=== PATIENT | male | born 1980 | race Caucasian/White ===

== ENCOUNTER 2018-09-18 08:54 | Day surgery (SDC) | payer OTHER, SELFPAY ==
--- NOTE | 2018-09-18 13:20 | CASEMGMT ---
According to [employer] website, the following are in-network tertiary facilities: [facility], [facility], [facility], [facility], [facility], [facility], [facility], [facility], and . [facility] [place] [facility]
--- NOTE | 2018-09-18 13:30 | CL.D_ITS ---
Patient Name: LEO GRAFF Study Date: 09/18/2018 Performing: Artie Huff MD Ht: 68.11 inches 173 cm : 1980 Wt: 194.01 lbs 88 kg Age: 37 Gender: male BSA: 2.02 PROCEDURE(S) PERFORMED OU23-VGM/COR/LV CLINICAL PROFILE AND INDICATIONS Indications: Worsening Angina Heart Failure: None Stress/Imaging Standard Exercise Stress Test: Yes Result: Positive Angina Classification Anginal Classification w/in 2 Weeks: CCS III CAD Presentations: Unstable angina. CONCLUSIONS Elevated Left Ventricular End Diastolic Pressure (mild) Normal LV size, wall motion,and systolic function LVEF: by LV gram 55 % [place] Multivessel CAD RECOMMENDATIONS Risk factor modification Medical therapy [facility] evaluation for high risk / GUIDE DELEGATE intervention vs. surgery consult for coronary rev ascularization DESCRIPTION OF PROCEDURE The patient arrived to the procedure lab. The risks and benefits of the procedure as well as a full d escription of our services here and current unavailability of surgical backup were fully explained to the patient and/or their significant other prior to the catheterization. The Timeout was completed, verifying the correct patient and procedure. The patient's procedural site was prepped and draped in the usual fashion. Local anesthetic was given subcutaneously to right radial region with Lidocaine 2% . Using a modified Seldinger technique, arterial access was obtained via the right radial artery, a 6 Fr sheath was inserted. Right Coronary Artery selective angiography was performed in multiple views using a 5 Fr. 4.0 Barre catheter. Left Coronary Artery selective angiography was performed in multipl e views using a 5 Fr. 4.0 Barre catheter. Left Ventriculography was performed in GUERRERO projection using a 5 Fr. Pigtail catheter. LV to AO pullback pressures were then recorded.The arterial sheath was pulled and a TR Band was applied for hemostasis CORONARY ANGIOGRAPHY DOMINANCE: Co- Dominant LEFT HEART ASSESSMENT Left Ventricular Ejection Fraction: by LV Gram 55 % Normal LV wall motion Elevated Left Ventricular End Diastolic Pressure LVEDP: 14 mmHg LEFT MAIN: Angiographically normal LEFT ANTERIOR DECENDING ARTERY: PROX LAD: Mild luminal irregularities MID LAD: is occluded with the mid to distal vessel filling late and paritally from left to left colla teral flow SEPTAL: Ostial: 50 % Stenosis CIRCUMFLEX ARTERY: Mild luminal irregularities OM 1: Proximal - Mild luminal irregularities and 25% stenosis (pre bifurcation), Mid - Mild luminal i rregularities RIGHT CORONARY ARTERY: MID RCA: is occluded DISTAL RCA: filling late and faintly from right to right and left to right collateral flow COLLATERAL FLOW: Collateral flow from Left to Left Collateral flow from Left to Right Collateral flow from Right to Right VALVE FINDINGS: Normal Aortic Valve function Normal Mitral Valve function AORTIC ROOT: Angiographically normal COMPLICATIONS No Complications PROCEDURE MEDICATIONS Versed 1 mg IV Fentanyl 50 mcg IV Fentanyl 50 mcg IV Versed 1 mg IV Oxygen: 2 L/min via nasal cannula Heparin diluted in 23cc Heparinized saline. Patient given 10cc IA of this solution. 09/18/2018 11:21: 33 Verapamil 2.5mg, Ntg 100mcgs, 2000 units of Heparin diluted in 23cc Heparinized saline. Patient give n 10cc IA of this solution. 09/18/2018 11:21:33 SUMMARY OF HEMODYNAMIC DATA Time AIR REST ECG 09:18:26 AO 115/72 (90) SA 11:24:54 LV 122/0, 12 11:34:09 LV 125/3, 14 11:34:15 LV 133/3, 16 11:35:30 LV 135/2, 19 11:35:37 LVp 138/-1, 15 11:35:42 AOp 130/75 (99) 11:35:47 Signed By Artie Huff MD On 09/18/2018 13:29:44 Artie Huff MD
--- NOTE | 2018-09-18 14:32 | HP.PCM_ITS ---
Problem List (1) Angina pectoris Status: Acute (2) Abnormal stress test Status: Acute (3) CAD (coronary artery disease) Status: Acute (4) HLD (hyperlipidemia) Status: Chronic (5) HTN (hypertension) Status: Chronic (6) Diabetes mellitus Status: Chronic (7) Tobacco use Status: Chronic History of Present Illness Date of Admission: 09/18/18 The patient is a 37 year old white male with a past medical history of hyperlipidemia, hypertension, diabetes mellitus, tobacco use, who has been following with Dr. Irving Machado of cardiology for concerns of chest discomfort and he has subsequently undergone further evaluation with a treadmill stress test and a stress echocardiogram who has subsequently been referred for further evaluation with diagnostic cardiac catheterization which demonstrated angiographically significant appearing coronary artery disease.The patient has described symptoms of chest discomfort with exertional activity with respect to chest tightness with radiation to the upper extremities with paresthesias as well as concerns of an element of dyspnea, nausea, and diaphoresis. The symptoms have occurred when he has been performing physical activity including sexual intercourse.They appear to improve with rest. He has denied orthopnea, PND, peripheral pitting edema. There have been no report of near syncope or syncope. He has undergone evaluation in the past with an exercise tolerance test. According to the report from 08/25/2018 the conclusion was he had an abnormal submaximal treadmill stress ECG with up to 2.8 mm of additional downsloping ST depression in the inferolateral leads with exercise stress. ST changes were associated with midsternal chest discomfort that radiated to the left arm and hand. ST changes in symptoms occurred at low exercise workload/heart rate and increased and magnitude/severity with increasing workload. ST changes were slow to resolve in recovery. Oxygen saturation was reported at 99% during exercise. The test was considered clinically positive for ischemia. He has subsequently undergone evaluation on 09/11/2018 with a stress echocardiogram. According to the report the patient at that time experienced no symptoms during stress, the exercise stress echo was considered positive for ischemia at 94% predicted maximum heart rate with concerns of mid and distal anterior septum and apical inferior segment an [place] being hypokinetic with report of an LV EF of 51% and no significant valvular abnormalities reported. The patient does states he has a previous history of mitral valve prolapse. He was referred for further evaluation with diagnostic cardiac catheterization. The cardiac catheterization was performed. He was found to have angiographically significant appearing coronary artery disease involving the LAD system and the RCA system. The left ventricle appeared to be overall preserved with respect of left ventricular wall motion and systolic function with an estimated LVEF of 55%. Past Medical History Allergies/Adverse Reactions: Allergies cephalexin [From Keflex] Allergy (Verified 09/17/18 07:41) Shortness of breath Home Medications: Ambulatory Orders Medication Instructions Recorded Aspirin [Aspirin, Baby] 81 mg PO DAILY@0800 09/17/18 Atorvastatin Calcium [Lipitor] 80 mg PO QHS 09/17/18 Clonazepam 0.5 mg PO BID 09/17/18 Desvenlafaxine Succinate [Pristiq] 50 mg PO DAILY 09/17/18 Flaxseed Oil [[place]-3 Flaxseed Oil] 520 mg PO DAILY 09/17/18 Metformin HCl 500 mg PO BID 09/17/18 Nicotine [Nicoderm Cq ([facility])] 7 mg TRANSDERM. DAILY 09/17/18 Nicotine [Nicoderm Cq ([facility]KC)] 14 mg TRANSDERM. DAILY 09/17/18 Nitroglycerin 0.4 mg SL PRN PRN 09/17/18 Omeprazole 20 mg PO DAILY 09/17/18 Past Medical History (Chronic Problems): Chronic Problems (Last Updated 09/17/18 @ 07:44 by Edward Junior) HLD (hyperlipidemia) (Chronic) Diabetes mellitus (Chronic) HTN (hypertension) (Chronic) Tobacco use (Chronic) Lives: Spouse/ Significant Other Smoking Status: Current every day smoker Alcohol: None Drugs: None Review of Systems - Review of Systems General: Denies: Fever, Night Sweats, Fatigue Cardiovascular: Reports: Chest Discomfort with Exertion, Shortness of Breath at Rest. Denies: Chest Discomfort, Shortness of Breath, Orthopnea, PND, Peripheral Edema, Palpitations, Lightheadedness, Dizziness, Near Syncope, Syncope Respiratory: Reports: Shortness of Breath. Denies: Cough, Sputum Production, Hemoptysis Gastrointestinal: Denies: Hematemesis, Hematochezia, Melena Genitourinary: Denies: Dysuria, Hematuria Skin: Denies: Rash Subjectve: This is a pleasant 37-year-old white male who appears to be resting comfortably in no acute distress. Objective: Weight: 194 lb General: Awake, Alert, Oriented x 3, Cooperative, No Acute Distress HEENT: Atraumatic, Normocephalic, PERRL, EOMI, Sclera Non Icteric Oral: Moist Mucosa Neck: Supple, Good ROM, No JVD Lungs: Clear to auscultation Cardiovascular: Regular Rhythm, Normal S1, Normal S2 Vascular: No Carotid Bruits, Normal Radial Pulses Abdomen: Bowel Sounds Present, Soft, Non Tender Extremities: No Cyanosis, No Clubbing, No edema Neurological: No Focal Motor or Sensory Deficit Psych/Mental Status: Appropriate VTE Information - Inpt Only VTE Present on Admission: No VTE Mechan Device Prophylaxis: None VTE Pharm Prophylaxis ordered?: Yes Labs: 08/05/2018: Total cholesterol 367; LDL cholesterol to 68; HDL cholesterol 33; triglycerides 329 Rhythm:Sinus rhythm ECG: Sinus rhythm; minimal voltage criteria for LVH Stress Test: As noted above Cardiac Cath: Please see official report Chest x-ray: 07/28/2018: Per the report: No acute radiographic abnormality Assessment/Plan 1. Angina pectoris The patient presents with symptoms concerning for angina pectoris. He has undergone evaluation with noninvasive studies including a treadmill stress test and a stress echocardiogram. Both were considered abnormal. He was placed on medical management. He was subsequently referred for further evaluation with diagnostic cardiac catheterization. The cardiac catheterization findings are as noted above. He will continue medical management. He is pending transferred to the [facility] [place] for further evaluation for possible high risk PTCA/stent versus CT surgery for CABG. 2. Abnormal stress tests He does have both and abnormal treadmill stress test and an abnormal stress echocardiogram. He has been evaluated as noted above. He will continue medical management and further evaluation at the tertiary care center. 3. CAD He has been found to have premature CAD. He has angiographically significant appearing CAD of the LAD and RCA systems. At the present time he will continue to be monitored. He will continue medical management which include agents such as aspirin, nitrates is needed, beta blockers, lipid lowering agents, anti platelets/anticoagulant agents is deemed appropriate, etc. He is pending transfer to [facility] for further evaluation and care. 4. Hyperlipidemia He will continue lipid lowering therapy. 5. Hypertension His blood pressure will be followed. He will continue medical management. 6. Diabetes mellitus He will continue evaluation care is deemed appropriate. 7. Tobacco use He has been counseled on the need to discontinue any tobacco use. Comment: The patient's case has been discussed and reviewed with the patient, his spouse, his mother, as well as with his primary interventional radiology tech Dr. Ribeiro. This note was generated using a voice recognition system and there may be incorrect words, spelling or punctuation that were not noted when reviewing the office note prior to saving.
[2018-09-18 16:00] VITALS: BP 115/65; PULSE 50; RESP 16; TEMP 36.4; O2SAT 95
[2018-09-18 16:15] VITALS: PULSE 46
[2018-09-18] MEDS: 0.9% Normal Saline 1,000 ML 75 ML IV (16:37)
[2018-09-18 16:51] LABS: Bedside Glucose 107 mg/dL (70-110)
[2018-09-18 19:07] VITALS: PULSE 57
[2018-09-18 21:53] VITALS: BP 150/79; PULSE 44; RESP 18; TEMP 36.8; O2SAT 96
[2018-09-18] MEDS: Atorvastatin Calcium 80 MG Tablet PO (22:19)
[2018-09-18] MEDS: Heparin Injection (Vial) 5,000 UNIT/ML VIAL 5000 UNIT SC (22:19)
[2018-09-18] MEDS: clonazePAM 0.5 MG Tablet PO (22:19)
[2018-09-18 22:21] VITALS: PULSE 44
[2018-09-18 22:31] LABS: Bedside Glucose 119 mg/dL (70-110)
[2018-09-18 23:01] VITALS: PULSE 45
[2018-09-19] VITALS (9 sets, daily range): BP systolic 106–126; BP diastolic 54–70; PULSE 45–60; RESP 16–18; TEMP 36.3–36.9; O2SAT 95–100
--- NOTE | 2018-09-19 05:55 | EKG12_ITS ---
Test Reason : AM EKG Blood Pressure : / mmHG Vent. Rate : 045 BPM Atrial Rate : 045 BPM P-R Int : 152 ms QRS Dur : 086 ms QT Int : 440 ms P-R-T Axes : 003 009 011 degrees QTc Int : 380 ms Sinus bradycardia with Fusion complexes Otherwise normal ECG When compared with ECG of 13-MAY-2012 02:35, Fusion complexes are now Present Vent. rate has decreased BY 25 BPM Confirmed by RENA CLEMONS, MENG ([id number]), editor magazine SÁNCHEZ MEEK ([id number]) on 09/22/2018 5:34:55 PM Referred By: Artie Huff Confirmed By:MENG CHASE MD
[2018-09-19 06:46] LABS: Absolute Lymphocyte Count 3.54 X10^3/ul (0.83-4.51); Absolute Neutrophil Count 6.6 X10^3/uL (2.0-7.7); Basophil# 0.04 X10^3/uL; Basophil% 0.3 % (0-1); Eosinophils% 2.6 % (0-5); Hematocrit 42.9 % (40-54); Hemoglobin 13.9 g/dl (13.0-16.5); Lymphocyte # 3.54 X10^3/ul (4.0); Lymphocyte % 30.9 % (19-41); Mean Corp Hgb Conc 32.4 g/gl (32-36); Mean Corpuscular Hgb 29.8 pg (27.0-32.0); Mean Corpuscular Volume 92.1 fL (80-94); Mean Platelet Vol. 10.8 fl (6.2-12.0); Monocyte# 0.95 X10^3/uL; Monocyte% 8.3 % (0-10); Neutrophil # 6.59 X10^3/uL (2.7-7.7); Neutrophil % 57.7 % (47-70); Platelet Count 263 K/mm3 (150-450); RBC Distribution Width CV 13.9 % (11.6-14.6); RBC Distribution Width SD 46.7 fl (35.1-43.9); Red Blood Count 4.66 M/mm3 (4.6-6.2); White Blood Count 11.4 K/mm3 (4.4-11.0)
[2018-09-19] MEDS: Heparin Injection (Vial) 5,000 UNIT/ML VIAL 5000 UNIT SC ×2 (06:46→14:26)
[2018-09-19 06:49] LABS: POSITIVE COUNT NO; POSITIVE DIFFERENTIAL NO; POSITIVE MORPHOLOGY NO
[2018-09-19 06:56] LABS: Bedside Glucose 114 mg/dL (70-110)
[2018-09-19 07:01] LABS: Anion Gap 8 (5-15); BUN 13 mg/dL (7-18); BUN/Creat Ratio 19.2 RATIO (10-20); Calcium,Total 8.5 mg/dL (8.5-10.1); Chloride 109 mmol/L (98-107); Creatinine, Serum 0.68 mg/dL (0.70-1.30); EST Glomerular Filtration Rate 141 mL/min (>60); Est Glom Filt Rate - Afr Amer 170 mL/min (>60); Estimated Creatinine Clearance 146.69 ml/min; Glucose 106 mg/dL (74-106); Potassium 3.9 mmol/L (3.5-5.1); Sodium Level 142 mmol/L (136-145)
[2018-09-19] MEDS: clonazePAM 0.5 MG Tablet PO (09:39)
[2018-09-19] MEDS: Pantoprazole Sodium 20 MG Tablet PO (09:39)
[2018-09-19] MEDS: Aspirin E.C. 81 MG Tablet PO (09:39)
[2018-09-19 11:40] LABS: Bedside Glucose 129 mg/dL (70-110)
[2018-09-19] MEDS: Venlafaxine XR 37.5 MG Capsule PO (12:51)
--- NOTE | 2018-09-19 13:28 | NURSING ---
Called and spoke with [facility] torie Mclean - Census is still very high and no available bed at this time. Will contact with any changes.
--- NOTE | 2018-09-19 13:52 | PN.CARD_ITS ---
Subjectve: The patient is awake and alert. He denies any acute chest discomfort or difficulty breathing. He has had no obvious post cardiac catheterization adverse events. Objective: Vital Signs Temp Pulse Resp BP Pulse Ox 98.5 F 52 L 18 122/54 H 96 09/19/18 09:20 09/19/18 10:59 09/19/18 09:20 09/19/18 09:39 09/19/18 09:20 Oxygen Delivery Method Room Air Weight: 194 lb Intake and Output for Last 24 Hours 09/17/18 09/18/18 09/19/18 23:59 23:59 23:59 Intake Total 147 / 147 1355 / 1355 Balance 147 / 147 1355 / 1355 General: Awake, Alert, Oriented x 3, Cooperative, No Acute Distress HEENT: Atraumatic, Normocephalic, PERRL, EOMI, Sclera Non Icteric Neck: Supple, Good ROM, No JVD Lungs: Clear to auscultation Cardiovascular: Regular Rhythm, Normal S1, Normal S2 Vascular: Normal Radial Pulses Abdomen: Bowel Sounds Present, Soft, Non Tender Extremities: No Cyanosis, No Clubbing, No edema Psych/Mental Status: Appropriate 09/19/18 05:17: WBC 11.4 H, RBC 4.66, Hgb 13.9, Hct 42.9, MCV 92.1, MCH 29.8, MCHC 32.4, RDW 13.9, RDW Differential 46.7 H, Plt Count 263, MPV 10.8, Immature Gran % (Auto) 0.200, Neut % (Auto) 57.7, Lymph % (Auto) 30.9, [place] % (Auto) 8.3, Eos % (Auto) 2.6, Baso % (Auto) 0.3, Absolute Neuts (auto) 6.6, Total Counted Not Reportable 09/19/18 05:17: Sodium 142, Potassium 3.9, Chloride 109 H, Carbon Dioxide 25.0, Anion Gap 8, BUN 13, Creatinine 0.68 L, Est GFR (MDRD) Af Amer 170, Est GFR (MDRD) Non-Af 141, BUN/Creatinine Ratio 19.2, Glucose 106, Calcium 8.5 Rhythm:Sinus rhythm Medical Necessity - Tobacco Use Smoking Status: Current every day smoker Assessment/Plan 1. Angina pectoris The patient presents with symptoms concerning for angina pectoris. He has undergone evaluation with noninvasive studies including a treadmill stress test and a stress echocardiogram. Both were considered abnormal. He was placed on medical management. He was subsequently referred for further evaluation with diagnostic cardiac catheterization. The cardiac catheterization findings are as noted above. He will continue medical management. He is pending transferred to the [facility] for further evaluation for possible high risk PTCA/stent versus CT surgery for CABG. 2. CAD He has been found to have premature CAD. He has angiographically significant appearing CAD of the LAD and RCA systems. At the present time he will continue to be monitored. He will continue medical management which include agents such as aspirin, nitrates is needed, beta blo ckers, lipid lowering agents, anti platelets/anticoagulant agents is deemed appropriate, etc. He is pending transfer to [facility] for further evaluation and care. 3. Hyperlipidemia He will continue lipid lowering therapy. 4. Hypertension His blood pressure will be followed. He will continue medical management. 5. Diabetes mellitus He will continue evaluation care is deemed appropriate. 6. Tobacco use He has been counseled on the need to discontinue any tobacco use. Comment: The patient's case has been discussed and reviewed with the patient as well as with his primary process safety manager Dr. Ribeiro. This note was generated using a voice recognition system and there may be incorrect words, spelling or punctuation that were not noted when reviewing the office note prior to saving.
[2018-09-19 17:11] LABS: Bedside Glucose 80 mg/dL (70-110)
--- NOTE | 2018-09-19 17:34 | NURSING ---
Patient report called to [facility] - IV access left intact since transfer. Patient report called to [facility]. RN given my direct phone number for any questions or concerns
== END 2018-09-19 17:13 | disposition short-term general hospital (02) ==
LOC: CLSP 08:55 → PCU 15:32
PROVIDERS: Family Provider Family Medicine; PCP Family Medicine; Referring Provider Internal Medicine Cardiovascular Disease; Visit Provider Internal Medicine Cardiovascular Disease
DX: I25.119 Atherosclerotic heart disease of native coronary artery with unspecified angina pectoris (principal); R94.39 Abnormal result of other cardiovascular function study; E78.5 Hyperlipidemia, unspecified; I10 Essential (primary) hypertension; E11.9 Type 2 diabetes mellitus without complications; I34.1 Nonrheumatic mitral (valve) prolapse; F41.9 Anxiety disorder, unspecified; F32.9 Major depressive disorder, single episode, unspecified; G43.909 Migraine, unspecified, not intractable, without status migrainosus; Z79.82 Long term (current) use of aspirin; Z79.84 Long term (current) use of oral hypoglycemic drugs; Z79.899 Other long term (current) drug therapy; F17.210 Nicotine dependence, cigarettes, uncomplicated
CPT/HCPCS: 36415; 80048; 82962; 85025; 93005; 93458; 99152; 99153; J7030; J7040; Q9967; C1769; C1894

== ENCOUNTER → 2019-09-30 10:34 | Outpatient (CLI) | payer OTHER, SELFPAY ==
[2019-09-30 09:38] VITALS: BMI 31.3
[2019-09-30 11:38] LABS: AST(SGOT) 41 U/L (15-37); Alanine Aminotransfer ALT/SGPT 101 U/L (16-61); Albumin, Serum 3.7 g/dL (3.2-5.0); Alkaline Phosphatase 111 U/L (45-117); Bilirubin, Direct 0.12 mg/dL (0.00-0.30); Cholesterol 214 mg/dL (200); Globulin 3.2 g/dL (2.2-4.2); High Density Lipoprotein 35 mg/dL; Protein, Total 6.9 g/dL (6.4-8.2); Triglycerides 277 mg/dL; Very Low Density Lipoprotein 55 mg/dL (5-40)
== END ==
PROVIDERS: PCP Family Medicine; Referring Provider Internal Medicine Cardiovascular Disease; Visit Provider Internal Medicine Cardiovascular Disease
DX: E78.00 Pure hypercholesterolemia, unspecified (principal); I25.10 Atherosclerotic heart disease of native coronary artery without angina pectoris; Z95.1 Presence of aortocoronary bypass graft
CPT/HCPCS: 36415; 80061; 80076

== ENCOUNTER → 2020-03-16 15:01 | Outpatient (CLI) | payer OTHER, SELFPAY ==
[2019-09-30 09:38] VITALS: BMI 31.3
[2020-03-16 17:46] LABS: Lithium < 0.20 mmol/L (0.60-1.20)
[2020-03-16 17:56] LABS: Creatinine, Serum 1.21 mg/dL (0.70-1.30); EST Glomerular Filtration Rate 72 mL/min (>60); Est Glom Filt Rate - Afr Amer 87 mL/min (>60); Thyroid Stim Hormone (TSH) 1.44 uIU/mL (0.358-3.74)
== END ==
LOC: LAB 15:04
PROVIDERS: PCP Family Medicine; Referring Provider Psychiatry & Neurology Psychiatry; Visit Provider Psychiatry & Neurology Psychiatry
DX: Z79.899 Other long term (current) drug therapy (principal)
CPT/HCPCS: 36415; 80178; 82565; 84443

== ENCOUNTER → 2020-03-23 10:43 | Outpatient (CLI) | payer OTHER, SELFPAY ==
[2019-09-30 09:38] VITALS: BMI 31.3
[2020-03-23 11:56] LABS: AST(SGOT) 19 U/L (15-37); Alanine Aminotransfer ALT/SGPT 25 U/L (16-61); Albumin, Serum 3.6 g/dL (3.2-5.0); Alkaline Phosphatase 105 U/L (45-117); Bilirubin, Direct 0.12 mg/dL (0.00-0.30); Cholesterol 73 mg/dL (200); Globulin 3.1 g/dL (2.2-4.2); High Density Lipoprotein 37 mg/dL; Protein, Total 6.7 g/dL (6.4-8.2); Triglycerides 177 mg/dL; Very Low Density Lipoprotein 35 mg/dL (5-40)
== END ==
LOC: LAB 10:45
PROVIDERS: PCP Family Medicine; Referring Provider Internal Medicine Cardiovascular Disease; Visit Provider Internal Medicine Cardiovascular Disease
DX: E78.00 Pure hypercholesterolemia, unspecified (principal); R74.8 Abnormal levels of other serum enzymes
CPT/HCPCS: 36415; 80061; 80076

== ENCOUNTER → 2020-05-22 10:06 | Outpatient (CLI) | payer OTHER, SELFPAY ==
[2020-04-13 13:00] VITALS: BMI 27.4
== END ==
PROVIDERS: PCP Family Medicine; Referring Provider Psychiatry & Neurology Psychiatry; Visit Provider Psychiatry & Neurology Psychiatry
DX: Z79.899 Other long term (current) drug therapy (principal)
CPT/HCPCS: 36415; 80178

== ENCOUNTER → 2020-12-06 15:42 | Outpatient (CLI) | payer OTHER, SELFPAY ==
[2020-04-13 13:00] VITALS: BMI 27.4
[2020-12-06 17:33] LABS: Creatinine, Serum 0.72 mg/dL (0.70-1.30); EST Glomerular Filtration Rate 130 mL/min (>60); Est Glom Filt Rate - Afr Amer 157 mL/min (>60); Thyroid Stim Hormone (TSH) 1.59 uIU/mL (0.358-3.74)
== END ==
LOC: LAB 15:45
PROVIDERS: PCP Family Medicine; Referring Provider Psychiatry & Neurology Psychiatry; Visit Provider Psychiatry & Neurology Psychiatry
DX: Z79.899 Other long term (current) drug therapy (principal)
CPT/HCPCS: 36415; 80178; 82565; 84443

== ENCOUNTER 2023-05-08 16:33 | Observation (INO) | payer BC, SELFPAY ==
[2023-05-08] VITALS (9 sets, daily range): BP systolic 102–122; BP diastolic 55–83; PULSE 43–58; RESP 16–21; TEMP 36.4–36.7; O2SAT 96–98; BMI 28.8; BMI 28.0
--- NOTE | 2023-05-08 | EKG12_ITS ---
Test Reason : CP REPEAT Blood Pressure : / mmHG Vent. Rate : 050 BPM Atrial Rate : 050 BPM P-R Int : 166 ms QRS Dur : 088 ms QT Int : 432 ms P-R-T Axes : 014 009 039 degrees QTc Int : 393 ms Sinus bradycardia with Premature atrial complexes Abnormal ECG When compared with ECG of 08-MAY-2023 16:57, MANUAL COMPARISON REQUIRED, DATA IS UNCONFIRMED Confirmed by RENA CLEMONS, MENG ([id number]), assistant production editor DARIA YEUNG ([id number]) on 06/25/2023 2:02:32 PM Referred By: NIKKO Confirmed By:MENG CHASE MD
--- NOTE | 2023-05-08 16:40 | RAD_ITS ---
STUDY: X-RAY CHEST REASON FOR EXAM: Male, 42 years old patient with chest pain. TECHNIQUE: PA and lateral views of the chest. COMPARISON: Prior comparison studies are not available for review at this time. FINDINGS: Cardiac monitoring leads are present. The patient has had a sternotomy. The lungs are underexpanded with crowding of bronchovascular markings and obscuration of the lung bases. There is no demonstrated pleural abnormality. There is borderline cardiomegaly. Normal mediastinum and asim. Normal visualized pulmonary arteries. Normal visualized aortic arch and descending thoracic aorta. Normal visualized thoracic spine. Normal visualized ribs, clavicles, and shoulders. There is no demonstrated abnormality of the visualized soft tissue structures of the upper abdomen. RAD/Chest PA and Lateral IMPRESSION: No radiographic evidence of acute cardiopulmonary disease. Electronically Signed: Shauna Isaac MD at 17:51 EDT ,
--- NOTE | 2023-05-08 16:45 | EKG12_ITS ---
Test Reason : Blood Pressure : / mmHG Vent. Rate : 053 BPM Atrial Rate : 053 BPM P-R Int : 168 ms QRS Dur : 078 ms QT Int : 426 ms P-R-T Axes : 013 010 049 degrees QTc Int : 399 ms Sinus bradycardia with sinus arrhythmia Cannot rule out Anterior infarct , age undetermined Abnormal ECG Confirmed by RENEE TORRES ([id number]), proposal editor DARIA YEUNG ([id number]) on 05/22/2023 11:31:56 AM Referred By: JARON Confirmed By:RENEE TORRES
[2023-05-08 16:56] LABS: Absolute Lymphocyte Count 3.76 X10^3/uL (0.83-4.51); Absolute Neutrophil Count 6.4 X10^3/uL (2.0-7.7); Basophil# 0.06 X10^3/uL; Basophil% 0.5 % (0-1); Eosinophil# 0.35 X10^3/uL; Hemoglobin 13.7 g/dL (13.0-16.5); Lymphocyte # 3.76 X10^3/ul (0.83-4.51); Lymphocyte % 31.9 % (19-41); Mean Corp Hgb Conc 32.6 g/dL (32-36); Mean Corpuscular Hgb 30.6 pg (27.0-32.0); Mean Platelet Vol. 10.4 fl (6.2-12.0); Monocyte# 1.22 X10^3/uL; Monocyte% 10.3 % (0-10); NRBC Flagged by Analyzer 0 % (0-5); Neutrophil # 6.35 X10^3/uL (2.7-7.7); Neutrophil % 53.9 % (47-70); Platelet Count 265 K/mm3 (150-450); RBC Distribution Width CV 13.1 % (11.6-14.6); RBC Distribution Width SD 45.1 fl (35.1-43.9); Red Blood Count 4.47 M/mm3 (4.6-6.2); White Blood Count 11.8 K/mm3 (4.4-11.0)
--- NOTE | 2023-05-08 17:11 | ED.VIS.CHEST ---
HPI History of Present Illness Chief Complaint: Chest Pain Informant: patient Narrative Narrative: Patient is a 42-year-old male with history of coronary artery disease status post CABG in 2019 with history of angina presenting with chest pain. Patient notes that his angina has been improved since being on Ranexa however he started developing angina again in the last 24 hours. He states at work last night he had pain in the center of his chest rating up into his jaw for about 3 hours. When he finally got to the car and drove home and rested his pain had resolved. After about an hour of being at work today that the pain returned. Patient was try to take it easy and rest at work however his boss yelled at him and then his pain came back more severe. Now the pain was rating to his jaw as well as into the center of his back. He denies any ripping or tearing sensation. This episode lasted for about 20 minutes. He did message his food service order clerk to [facility], Hilary Yadav, but is not heard back. He takes 81 mg of aspirin daily. He states his last catheterization was fall 2021 and he states at that time it was 100% clear. Patient continues to smoke cigarettes. Has significant family history of cardiac in 30s with his father's brothers. Patient [place] any swelling in his legs. Denies any other complaints at this time. Is currently not having any chest pain. PFSH PFS Medical History Abnormal stress test Angina pectoris Anxiety Atherosclerotic heart disease of [place] coronary artery without angina pectoris CAD (coronary artery disease) Depression Diabetes mellitus Essential hypertension GERD (gastroesophageal reflux disease) HLD (hyperlipidemia) Hyperlipemia Migraine Mitral valve prolapse Pre-diabetes Pure hypercholesterolemia Tobacco use Tobacco use Home Medications clonazepam 0.5 mg tablet 0.5 mg PO BID 09/17/18 [History Last Taken 09/18/18] cyclobenzaprine 5 mg tablet 5 mg PO BID PRN muscle spasm 09/28/19 [History Last Taken Unknown] evolocumab 140 mg/mL subcutaneous pen injector 140 mg subcut Q2W 09/28/19 [History Last Taken Unknown] pantoprazole 40 mg tablet,delayed release 40 mg PO DAILY 09/28/19 [History Last Taken Unknown] desvenlafaxine succinate 50 mg tablet,extended release 24 hr 75 mg PO DAILY Depression 09/30/19 [History Last Taken Unknown] atorvastatin 80 mg tablet 80 mg PO QHS #90 tabs 04/13/20 [Rx Last Taken Unknown] clopidogrel 75 mg tablet 75 mg PO DAILY #90 tabs 04/13/20 [Rx Last Taken Unknown] evolocumab 140 mg/mL subcutaneous pen injector (Sigifredo Tidwell) 140 mg subcut Q2W #1 mL 04/13/20 [Rx Last Taken Unknown] metoprolol tartrate 50 mg tablet 50 mg PO BID #180 tabs 04/13/20 [Rx Last Taken Unknown] nitroglycerin 0.4 mg sublingual tablet 0.4 mg sublingual PRN PRN Angina #25 tabs 04/13/20 [Rx Last Taken Unknown] ezetimibe 10 mg tablet (Zetia) 10 mg PO QHS 05/08/23 [History Last Taken Unknown] lithium carbonate 300 mg capsule 300 mg PO BID 05/08/23 [History Last Taken Unknown] metformin 500 mg tablet,extended release 24 hr 1,000 mg PO BID DIABETES 05/08/23 [History Last Taken Unknown] oxybutynin chloride 5 mg tablet,extended release 24 hr 5 mg PO DAILY 05/08/23 [History Last Taken Unknown] ranolazine 500 mg tablet,extended release,12 hr 500 mg PO BID 05/08/23 [History Last Taken Unknown] Allergy/AdvReac Type Severity Reaction Status Date / Time cephalexin [From Keflex] Allergy Shortness Verified 05/08/23 16:44 of breath ketamine AdvReac Severe Hallucinati Verified 05/08/23 16:44 ons Family History Uncle Myocardial infarction Aunt Cancer Sister Thyroid disorder Mother Hypoglycemia Anxiety Hypertension Brother Anxiety Hypertension Brother CAD (coronary artery disease) History of coronary artery bypass surgery Surgical History History of coronary artery bypass surgery (~09/23/18) Social History Smoking Status: Current every day smoker tobacco type: cigarettes alcohol intake: never substance use type: does not use caffeine: No ROS ROS ED Constitutional Constitutional ED: Denies chills, fever(s) or sweats Cardiovascular Cardiovascular: Reports as per HPI and chest pain Respiratory/Chest Respiratory/Chest: Denies cough Gastrointestinal Gastrointestinal: Denies nausea or vomiting Musculoskeletal Musculoskeletal: Denies arthralgias or myalgias Integumentary Denies rash Psychiatric Psychiatric: Denies anxiety EXAM Physical Exam Const Vital Signs: 05/08/23 16:33 05/08/23 16:38 05/08/23 16:43 Temperature 97.5 F L Temperature Source Temporal Pulse Rate 58 L Respiratory Rate 16 Respiratory Effort Normal Non-Labored Blood Pressure 102/61 Blood Pressure Mean 74 Pulse Ox 96 98 Oxygen Delivery Method Room Air Room Air 05/08/23 18:54 05/08/23 20:06 Temperature Temperature Source Pulse Rate 50 L 55 L Respiratory Rate 19 H 21 H Respiratory Effort Blood Pressure 111/69 106/56 L Blood Pressure Mean 83 72 Pulse Ox 96 96 Oxygen Delivery Method Room Air Room Air Positive well nourished and well developed General Appearance ED: well developed and NAD HEENT Reports moist mucous membranes normocephalic and atraumatic Eyes PERRL Neck supple and no JVD Chest Wall inspection of chest normal and palpation of chest normal Resp normal respiratory effort and clear to auscultation bilaterally Cardio regular rate and no murmurs Peripheral Pulses: pulses 2+ throughout GI normal to inspection, nondistended, normoactive bowel sounds and soft to palpation Extremity normal to inspection General Extremety ED: Negative for edema General Extremity: Negative for edema Neuro oriented x3 Motor Exam: Negative for general weakness Psych mental status grossly normal Skin no rashes or lesions noted Heart Score History: Highly Suspicious ECG: Nonspecific Repolarization Age: </= 45 years Risk Factors: >/= 3 Risk Factors or History of CAD Score: 5 MDM MDM MDM Narrative Medical decision making narrative: Patient evaluated for angina. Nontoxic no acute distress. Vital signs are significant for bradycardia however he is on metoprolol. He currently is symptom-free however his story is concerning for angina and he has a significant history of coronary artery disease he continues to smoke. EKG is not consistent with ACS but does have some subtle changes in the inferior leads with some subtle depressions in the lateral leads. His lab work is remarkable for mild leukocytosis 11.8 which is nonspecific and a high-sensitivity troponin of 5 and then 4. Thyroid is normal. BMP largely normal. Case is discussed with cardiology on-call, Dr. Bronson, who is amenable to seeing the patient tomorrow for further cardiac evaluation. As his heart score is 5 I do think would be safer to bring him into the hospital for cardiac work-up versus doing this outpatient. Patient is agreeable. He is given a nicotine patch in the emergency room. Patient is discussed admitting physician and will be admitted to the medical floor for further cardiac observation. Lab Data Attestation: I reviewed the patient's lab results. Labs: Laboratory Results - last 24 hr 05/08/23 05/08/23 16:40 18:55 WBC 11.8 H RBC 4.47 L Hgb 13.7 Hct 42.0 MCV 94.0 MCH 30.6 MCHC 32.6 RDW Std Deviation 45.1 H RDW Coeff of Abhinav 13.1 Plt Count 265 MPV 10.4 Immature Gran % (Auto) 0.400 Neut % (Auto) 53.9 Lymph % (Auto) 31.9 [place] % (Auto) 10.3 H Eos % (Auto) 3.0 Baso % (Auto) 0.5 Absolute Neuts (auto) 6.4 Absolute Lymphs (auto) 3.76 Nucleated RBC % 0 Sodium 141 Potassium 4.1 Chloride 113 H Carbon Dioxide 24.0 Anion Gap 4 L BUN 12 Creatinine 0.80 Estim Creat Clear Calc 122.74 Est GFR (MDRD) Af Amer 137 Est GFR (MDRD) Non-Af 113 BUN/Creatinine Ratio 14.9 Glucose 75 Calcium 8.6 Magnesium 2.1 Troponin I High Sens 5 4 TSH 1.80 Radiography Chest X-Ray - ED: 2 View, Read by ED Physician, Read by Radiologist and No Acute Disease Diagnostic Testing: Clinical Impression(s) from Imaging Studies Chest X-Ray 05/08/23 16:40 IMPRESSION: No radiographic evidence of acute cardiopulmonary disease. Electronically Signed: Shauna Isaac MD at 17:51 EDT Reading Location ID and State: [facility] / [place] , Service support , Rhythm Strip Rhythm Strip: Sinus Rhythm Rate: 53 Ectopy: None EKG Initial EKG: Attestation: I personally reviewed and interpreted this EKG as follows: Interpretation: Sinus Bradycardia Comments: Sinus bradycardia with sinus arrhythmia Normal axis Normal intervals Questionable ST segment changes that are nonspecific in 3 and aVF with very subtle ST depression in 1 and aVL Compared to prior EKG from 09/19/2018 patient has reversal of T wave inversion in lead III and the changes to 1 and aVL are new Prior EKG tracings: available for review Prior: Changed Follow-up EKG: Attestation: I personally reviewed and interpreted this EKG as follows: Interpretation: Sinus Bradycardia Comments: Sinus bradycardia at a rate of 50 bpm with PACs Normal intervals Nonspecific ST segment and T wave changes No change compared to prior EKG Management Discussion w/another healthcare provider: Hospitalist and Lip Cutter And Scorer Discharge Plan Dx/Rx/DC Orders Clinical Impression: Bradycardia, History of coronary artery bypass surgery, Angina pectoris Disposition Disposition: Acute Care [facility] Discharge Date/Time: 05/08/23 21:15
[2023-05-08 17:23] LABS: Anion Gap 4 (5-15); BUN 12 mg/dL (7-18); BUN/Creat Ratio 14.9 RATIO (10-20); Calcium,Total 8.6 mg/dL (8.5-10.1); Chloride 113 mmol/L (98-107); EST Glomerular Filtration Rate 113 mL/min (>60); Est Glom Filt Rate - Afr Amer 137 mL/min (>60); Estimated Creatinine Clearance 122.74 ml/min; Glucose 75 mg/dL (74-106); Magnesium 2.1 mg/dL (1.6-2.6); Potassium 4.1 mmol/L (3.5-5.1); Sodium Level 141 mmol/L (136-145); Troponin-I HS (w/2H Reflex) 5 pg/mL (3.0-78.0)
[2023-05-08] MEDS: Aspirin 81 MG TAB.CHEW 162 MG PO (17:38)
[2023-05-08 18:50] LABS: Reflex Troponin-HS? (from REC) Y
[2023-05-08 19:17] LABS: Troponin-I HS 4 pg/mL (3.0-78.0)
--- NOTE | 2023-05-08 20:35 | HP.PCM.HOS_ITS ---
HPI - General General Date of Admission: 05/08/23 Date of Service: 05/08/23 Chief Complaint: Chest pain HPI Narrative LEO GRAFF, is a 42 M with a significant history of familial hypercholesterolemia on Zetia, Repatha and atorvastatin; CABG triple-vessel CABG in 2019 who presents to the emergency department with episodic chest pain. In the past 24 before presentation patient has had 3 episodes of episodic chest pain. The last chest pain occurred about 10 minutes before presentation while at rest. Patient was brought to emergency department by the ambulance. He described chest pain as severe. The chest pain is substernal, dull and aching. The pain radiates into his throat and into his shoulders where he has sharp pain. Also the pain radiates into his upper shoulder; in between his shoulder blades. Physical activity worsens the pain and rest improves the pain. At the emergency department because you are taking aspirin in a.m. he was given 122 mg of aspirin. ED doctor discussed the case with cardiology who recommended the patient be admitted for stress test. Of note patient reports that his identical twin also had a cardiac fall a CABG about a month after patient had his CABG. PFSH Medical History Abnormal stress test Angina pectoris Anxiety Atherosclerotic heart disease of [place] coronary artery without angina pectoris CAD (coronary artery disease) Depression Diabetes mellitus Essential hypertension GERD (gastroesophageal reflux disease) HLD (hyperlipidemia) Hyperlipemia Migraine Mitral valve prolapse Pre-diabetes Pure hypercholesterolemia Tobacco use Tobacco use Home Medications clonazepam 0.5 mg tablet 0.5 mg PO BID 09/17/18 [History Last Taken 09/18/18] cyclobenzaprine 5 mg tablet 5 mg PO BID PRN muscle spasm 09/28/19 [History Last Taken Unknown] evolocumab 140 mg/mL subcutaneous pen injector 140 mg subcut Q2W 09/28/19 [History Last Taken Unknown] pantoprazole 40 mg tablet,delayed release 40 mg PO DAILY 09/28/19 [History Last Taken Unknown] desvenlafaxine succinate 50 mg tablet,extended release 24 hr 75 mg PO DAILY Depression 09/30/19 [History Last Taken Unknown] atorvastatin 80 mg tablet 80 mg PO QHS #90 tabs 04/13/20 [Rx Last Taken Unknown] clopidogrel 75 mg tablet 75 mg PO DAILY #90 tabs 04/13/20 [Rx Last Taken Unknown] evolocumab 140 mg/mL subcutaneous pen injector (Repatha SureClick) 140 mg subcut Q2W #1 mL 04/13/20 [Rx Last Taken Unknown] metoprolol tartrate 50 mg tablet 50 mg PO BID #180 tabs 04/13/20 [Rx Last Taken Unknown] nitroglycerin 0.4 mg sublingual tablet 0.4 mg sublingual PRN PRN Angina #25 tabs 04/13/20 [Rx Last Taken Unknown] ezetimibe 10 mg tablet (Zetia) 10 mg PO QHS 05/08/23 [History Last Taken Unknown] lithium carbonate 300 mg capsule 300 mg PO BID 05/08/23 [History Last Taken Unknown] metformin 500 mg tablet,extended release 24 hr 1,000 mg PO BID DIABETES 05/08/23 [History Last Taken Unknown] oxybutynin chloride 5 mg tablet,extended release 24 hr 5 mg PO DAILY 05/08/23 [History Last Taken Unknown] ranolazine 500 mg tablet,extended release,12 hr 500 mg PO BID 05/08/23 [History Last Taken Unknown] Allergy/AdvReac Type Severity Reaction Status Date / Time cephalexin [From Keflex] Allergy Shortness Verified 05/08/23 16:44 of breath ketamine AdvReac Severe Hallucinati Verified 05/08/23 16:44 ons Family History Uncle Myocardial infarction Aunt Cancer Sister Thyroid disorder Mother Hypoglycemia Anxiety Hypertension Brother Anxiety Hypertension Brother CAD (coronary artery disease) History of coronary artery bypass surgery Surgical History History of coronary artery bypass surgery (~09/23/18) Social History Smoking Status: Current every day smoker tobacco type: cigarettes alcohol intake: never substance use type: does not use caffeine: No ROS ROS Narrative Pertinent positives and pertinent negatives as noted in HPI. All other systems were reviewed and are negative Vital Signs Vital Signs Vital Signs: 05/08/23 16:33 05/08/23 16:38 05/08/23 16:43 Temperature 97.5 F L Temperature Source Temporal Pulse Rate 58 L Respiratory Rate 16 Respiratory Effort Normal Non-Labored Blood Pressure 102/61 Blood Pressure Mean 74 Pulse Ox 96 98 Oxygen Delivery Method Room Air Room Air 08/31/23 18:54 05/08/23 20:06 Temperature Temperature Source Pulse Rate 50 L 55 L Respiratory Rate 19 H 21 H Respiratory Effort Blood Pressure 111/69 106/56 L Blood Pressure Mean 83 72 Pulse Ox 96 96 Oxygen Delivery Method Room Air Room Air Weight Weight: 88.451 kg Body Mass Index (BMI) 28.8 Physical Exam Narrative Physical exam: General: Well-nourished, well-developed. Head: Normocephalic, atraumatic, no tenderness Eyes: Vision is grossly intact. EOMI ENT, no trauma, moist mucous membranes, no rhinorrhea Neck: Nontender, No thyromegaly. CVS: Regular rate and rhythm. S1-S2 present. No murmur, gallop or rub. Respiratory : clear to auscultation bilaterally, chest wall nontender Abdomen: Soft, nontender, nondistended, normal bowel sounds, no masses : Deferred Back: Nontender, no CVA tenderness, no midline spinal tenderness, deformities, step-offs Extremities: Nontender full range of motion, no trauma Skin: Normal color, no trauma, abrasions Neuro: Alert, oriented, cranial nerves II through XII grossly intact. Psychiatry: Normal mood. Normal affect. Not depressed. Not anxious. Results Lab / Micro Data 05/08/23 16:40 05/08/23 16:40 Labs: Laboratory Results - last 24 hr 05/08/23 16:40: WBC 11.8 H, RBC 4.47 L, Hgb 13.7, Hct 42.0, MCV 94.0, MCH 30.6, MCHC 32.6, RDW Std Deviation 45.1 H, RDW Coeff of Abhinav 13.1, Plt Count 265, MPV 10.4, Immature Gran % (Auto) 0.400, Neut % (Auto) 53.9, Lymph % (Auto) 31.9, Mccone % (Auto) 10.3 H, Eos % (Auto) 3.0, Baso % (Auto) 0.5, Absolute Neuts (auto) 6.4, Absolute Lymphs (auto) 3.76, Nucleated RBC % 0, Sodium 141, Potassium 4.1, Chloride 113 H, Carbon Dioxide 24.0, Anion Gap 4 L, BUN 12, Creatinine 0.80, Estim Creat Clear Calc 122.74, Est GFR (MDRD) Af Amer 137, Est GFR (MDRD) Non-Af 113, BUN/Creatinine Ratio 14.9, Glucose 75, Calcium 8.6, Magnesium 2.1, Troponin I High Sens 5, TSH 1.80 05/08/23 18:55: Troponin I High Sens 4 Radiology Impression Chest X-Ray 05/08/23 16:40 IMPRESSION: No radiographic evidence of acute cardiopulmonary disease. Electronically Signed: Shauna Isaac MD at 17:51 EDT Reading Location ID and State: [facility] / [place] , Service support , Assessment & Plan Assessment/Plan (1) Angina pectoris: (2) Bradycardia: PLAN: Plan Angina pectoris Place on a monitored bed at progressive care unit Chest x-ray interpreted by radiologist as no acute cardiopulmonary process. Actual CXR image was independently visualized. No acute cardiopulmonary process was noted. Actual EKG tracing was independently visualized. EKG tracing showed subtle changes in EKG compared to previous one obtained in 2019. ASA 81 and Plavix continued. SL NTG 0.4 mg prn as needed for chest pain ordered We will check lipid panel. Home statin and Zetia continued. On Repatha outpatient. Anticoagulation: Troponin x2 is negative, trend. Stat EKG as needed for chest pain Treadmill stress test in the AM if the cardiac enzymes are negative. Echocardiogram ordered. DVT prophylaxis ordered. EKG was nonspecific and appears changed from previous EKG in 2019. Bradycardia Escalate dose of metoprolol and place parameters. Telemetry monitoring. DVT prophylaxis SCDs ordered Time spent in the patient's overall evaluation,decision-making process, review of diagnostic data, adjustment of management, discussion with other providers, nursing nursing and ancillary staff involved in patient's care documentation, 45 minutes. Charges/Coding Visit Charges Inpatient E&M: 45182 Init Hosp L2
[2023-05-08] MEDS: Lithium Carbonate 300mg Capsule 300 MG PO (22:58)
[2023-05-08] MEDS: Ezetimibe 10 MG Tablet PO (22:58)
[2023-05-08] MEDS: Atorvastatin Calcium 80 MG Tablet PO (22:58)
[2023-05-08 23:02] LABS: Troponin-I HS 5 pg/mL (3.0-78.0)
[2023-05-08] MEDS: clonazePAM 0.5 MG Tablet PO (23:04)
[2023-05-08] MEDS: Ranolazine 500 MG Tablet PO (23:05)
[2023-05-08] MEDS: Tolterodine Tartrate 2 MG CAP.SA PO (23:06)
[2023-05-08] MEDS: MELATONIN 10 MG TABLET 5 MG PO (23:27)
[2023-05-09 00:53] LABS: Bedside Glucose 98 mg/dL (74-106)
[2023-05-09 03:20] VITALS: BP 117/99; PULSE 61; RESP 16; TEMP 36.4; O2SAT 93
[2023-05-09 04:45] VITALS: BP 117/99; PULSE 54
[2023-05-09 05:55] LABS: Absolute Lymphocyte Count 3.87 X10^3/uL (0.83-4.51); Absolute Neutrophil Count 5.6 X10^3/uL (2.0-7.7); Basophil# 0.06 X10^3/uL; Basophil% 0.6 % (0-1); Eosinophil# 0.34 X10^3/uL; Eosinophils% 3.1 % (0-5); Hematocrit 41.2 % (40-54); Hemoglobin 14.5 g/dL (13.0-16.5); Lymphocyte # 3.87 X10^3/ul (0.83-4.51); Lymphocyte % 35.8 % (19-41); Mean Corp Hgb Conc 35.2 g/dL (32-36); Mean Corpuscular Volume 93.6 fL (80-94); Mean Platelet Vol. 10.4 fl (6.2-12.0); Monocyte% 8.3 % (0-10); NRBC Flagged by Analyzer 0 % (0-5); Neutrophil # 5.57 X10^3/uL (2.7-7.7); Neutrophil % 51.6 % (47-70); Platelet Count 263 K/mm3 (150-450); RBC Distribution Width CV 13.1 % (11.6-14.6); RBC Distribution Width SD 44.9 fl (35.1-43.9); White Blood Count 10.8 K/mm3 (4.4-11.0)
--- NOTE | 2023-05-09 05:55 | ECHOCS_ITS ---
Reason For Study: Chest Pain Procedure This was a 2D Doppler, Color Flow transthoracic echocardiogram. Contrast injection was performed. Exam performed in department. Left Ventricle Normal LV size. The estimated ejection fraction is 65 %. Normal diastology for age. No regional wall motion abnormalities noted. Right Ventricle Normal RV size. Normal systolic function. Atria Normal left atrium. Normal right atrium. No doppler evidence for ASD. Bubble contrast study negative for right to left interatrial shunt. Mitral Valve There is no mitral valve stenosis. Trivial mitral valve insufficiency. Tricuspid Valve There is no tricuspid stenosis. Unable to estimate RV systolic pressure due to inadequate jet, pulmonary artery pressure probably normal. Aortic Valve Trisinus/trileaflet aortic valve. There is no aortic stenosis. No aortic valve insufficiency. Pulmonic Valve There is no pulmonic valvular stenosis. No pulmonic valve insufficiency. Great Vessels Normal aortic root. Medication Diluted definity 2ml given slow IV push to enhance endocardial definition. Performed a rapid injection of agitated mix of 9 cc saline and 1cc air to assess for atrial septal defect. MMode/2D Measurements & Calculations LVIDd: 5.1 cm IVSd: 0.83 cm Ao root diam: 3.8 cm LVIDs: 4.1 cm LVPWd: 0.88 cm LA dimension: 4.5 cm RVDd: 3.6 cm FS: 18.8 % LAV(MOD-bp): 58.8 ml LVAd ap4: 39.3 cm2 SV(MOD-sp4): 85.9 ml LAV(MOD-bp) Indexed: 29.2 ml/m2 LVLd ap4: 9.3 cm LAV(MOD-sp2): 60.5 ml EDV(MOD-sp4): 138.7 ml LAV(MOD-sp4): 54.7 ml EDV(sp4-el): 141.5 ml LVAs ap4: 22.1 cm2 LVLs ap4: 8.4 cm ESV(MOD-sp4): 52.8 ml ESV(sp4-el): 49.2 ml EF(MOD-sp4): 61.9 % EF(sp4-el): 65.2 % SV(sp4-el): 92.3 ml LA A4 area: 20.3 cm2 RA A4 area: 16.9 cm2 TAPSE: 1.3 cm Time Measurements MV dec time: 0.19 sec Doppler Measurements & Calculations MV E max rashawn: 103.4 cm/sec Lat Peak E' Rashawn: 11.9 cm/sec Med Peak E' Rashawn: 7.8 cm/sec MV A max rashawn: 65.7 cm/sec E/E' lat: 8.7 E/E' med: 13.3 MV E/A: 1.6 MV V2 max: 118.3 cm/sec MV P1/2t max rashawn: 119.4 cm/sec Ao V2 max: 140.3 cm/sec MV max P.6 mmHg MV P1/2t: 73.1 msec Ao max P.9 mmHg MV V2 mean: 44.8 cm/sec MV dec slope: 478.3 cm/sec2 Ao V2 mean: 93.9 cm/sec MV mean P.1 mmHg Ao mean P.1 mmHg MV V2 VTI: 40.8 cm MVA(P1/2t): 3.0 cm2 Ao V2 VTI: 37.9 cm AV (velocity ratio): 0.83 LV V1 max: 122.6 cm/sec MR max rashawn: 482.1 cm/sec PA V2 max: 91.9 cm/sec LV V1 max P.0 mmHg MR max P.0 mmHg PA V2 mean: 62.1 cm/sec LV V1 mean P.9 mmHg LV V1 mean: 78.4 cm/sec LV V1 VTI: 31.3 cm ECHO/Echo Complete W/ Contrast Interpretation Summary The estimated ejection fraction is 65 %. Trivial mitral valve insufficiency. Ordering Physician: Dexter Woodard Performed By: Martinez Landry RCS
--- NOTE | 2023-05-09 05:55 | EKG12_ITS ---
Test Reason : AM EKG Blood Pressure : / mmHG Vent. Rate : 059 BPM Atrial Rate : 059 BPM P-R Int : 180 ms QRS Dur : 088 ms QT Int : 448 ms P-R-T Axes : 024 021 060 degrees QTc Int : 443 ms Sinus bradycardia with marked sinus arrhythmia Nonspecific ST abnormality Abnormal ECG When compared with ECG of 08-MAY-2023 20:44, MANUAL COMPARISON REQUIRED, DATA IS UNCONFIRMED Confirmed by RENA CLEMONS, MENG ([id number]), editor at large DARIA YEUNG ([id number]) on 06/23/2023 12:50:45 PM Referred By: Confirmed By:MENG CHASE MD
[2023-05-09] MEDS: Aspirin E.C. 81 MG Tablet PO (06:19)
[2023-05-09] MEDS: Clopidogrel Bisulfate 75 MG Tablet PO (06:19)
[2023-05-09 06:21] VITALS: BP 110/62; PULSE 52; RESP 16; TEMP 36.3; O2SAT 96
[2023-05-09 06:41] LABS: Anion Gap 4 (5-15); BUN 13 mg/dL (7-18); BUN/Creat Ratio 21.1 RATIO (10-20); Calcium,Total 8.5 mg/dL (8.5-10.1); Chloride 114 mmol/L (98-107); Creatinine, Serum 0.62 mg/dL (0.70-1.30); EST Glomerular Filtration Rate 154 mL/min (>60); Est Glom Filt Rate - Afr Amer 186 mL/min (>60); Estimated Creatinine Clearance 158.38 ml/min; Glucose 96 mg/dL (74-106); Potassium 4.1 mmol/L (3.5-5.1); Sodium Level 142 mmol/L (136-145)
[2023-05-09 06:41] LABS: Bedside Glucose 97 mg/dL (74-106)
[2023-05-09 06:56] LABS: Cholesterol 68 mg/dL (200); High Density Lipoprotein 37 mg/dL; Triglycerides 142 mg/dL; Very Low Density Lipoprotein 28 mg/dL (5-40)
[2023-05-09 07:35] VITALS: O2SAT 96
--- NOTE | 2023-05-09 09:42 | CASEMGMT ---
Social Work Pt indicated to admitting RN that he does not have LW/POA and declined additional information. RANJANA Duffy
[2023-05-09 10:23] LABS: Hemoglobin A1c 5.8 % (3.8-5.6)
[2023-05-09 11:15] VITALS: BP 103/58; PULSE 52; RESP 16; TEMP 35.8; O2SAT 93
--- NOTE | 2023-05-09 11:36 | STRESSREP ---
Stress Test Report Date: 05/09/2023 Procedure: Exercise tolerance test/imaging study Indications: Chest pain Consent: Per the patient Procedure: The patient exercised on a Kory protocol for 9 minutes achieving a peak heart rate of 136 bpm (75% predicted maximal heart rate) with a peak blood pressure [178/70] mmHg and a peak MET capacity of 10.1 METs. The baseline ECG demonstrated normal sinus rhythm. The peak exercise ECG demonstrated no significant ischemic changes. EKG during recovery revealed no significant ischemic changes [There were no cardiac dysrhythmias pretest, during exercise, or recovery]. The functional capacity was considered normal for age. There was [no complaint of chest discomfort during exercise or recovery]. The examination was discontinued secondary to dyspnea, leg discomfort. Impression: 1. Inability to reach 85% of maximal age-predicted heart rate decreases the sensitivity of this test. Patient however as noted above he walked for 9 minutes on the Kory protocol without any chest pain. 2. Stress test is negative for exercise-induced EKG changes of ischemia 3. The test test is negative for exercise-induced chest pain 4. Functional capacity is normal for age 5. Nuclear images pending Myocardial perfusion imaging study: Technique: The patient was injected with 11.4 mCi of technetium 99m Cardiolite and subsequently rest SPECT Cardiolite nuclear imaging was obtained in the horizontal long, vertical long, and short axis views. The patient exercised on a Kory protocol. Please see above for details. The patient was injected with 34.2 mCi of technetium 99m Cardiolite and subsequently stress SPECT Cardiolite nuclear imaging was obtained in the horizontal long, vertical long, and short axis views. A gated Cardiolite study at peak stress was obtained. Interpretation: Rest and stress SPECT Cardiolite nuclear imaging status post realignment, normalization, and attenuation correction, demonstrates no evidence of significant ischemia or infarction. The gated Cardiolite study demonstrates septal hypokinesis likely related to prior bypass surgery. The reported LVEF is 62%. Impression: 1. There is no evidence of significant ischemia or infarction. 2. The gated Cardiolite study reports an LVEF of 62%. This note was generated with AB Tastyation software. It may contain incorrect words, spelling, and punctuation that were not noted in checking the note before signing.
[2023-05-09] MEDS: Venlafaxine XR 37.5 MG Capsule PO (12:21)
[2023-05-09] MEDS: Ranolazine 500 MG Tablet PO (12:21)
[2023-05-09] MEDS: Pantoprazole Sodium 40 MG Tablet PO (12:21)
[2023-05-09] MEDS: Lithium Carbonate 300mg Capsule 300 MG PO (12:21)
[2023-05-09] MEDS: clonazePAM 0.5 MG Tablet PO (12:22)
[2023-05-09] MEDS: 0.9% Saline Lock 10 ML Syringe IV (12:23)
--- NOTE | 2023-05-09 12:59 | CT_ITS ---
STUDY: CT CHEST WITHOUT CONTRAST REASON FOR EXAM: Male, 42 years old. Chest pain RADIATION DOSAGE (If Supplied By Facility): CTDIvol = ( 11.83 ) mGy, DLP = ( 428.54 ) mGycm TECHNIQUE: Transaxial imaging was performed without the administration of intravenous contrast material. Multiplanar coronal and sagittal images were reformatted. Individualized dose optimization techniques were used for this CT. COMPARISON: Comparison made with prior chest graft dated May 08, 2023. FINDINGS: CHEST Minimal linear scarring in the left upper lobe. No focal infiltrate is seen. There is no demonstrated pleural abnormality. Sternal cerclage wires and vascular clips are present from a prior sternotomy and coronary artery bypass graft procedure (CABG). Normal mediastinum. Normal hilar regions. Normal unenhanced pulmonary arteries. Normal aorta arch and descending thoracic aorta. There are degenerative changes of the thoracic spine. There is no demonstrated abnormality of the visualized upper abdomen. CT/Chest without Contrast IMPRESSION: Prior CABG. No acute abnormality is seen. Electronically Signed: Clement Vazquez MD at 13:59 EDT ,
--- NOTE | 2023-05-09 14:13 | PCM.DC ---
Discharge Instructions Diet Discharge Diet: Renal Diet and - (Resume previous diet) Activity Discharge Activity: Return to Normal Activity Weight Bearing Status: Full weight bearing Follow Up Care Test Results: Test results from this visit will be discussed in further detail at your follow-up appointment, if applicable. Discharge Plan Admission Admit Date/Time: 05/08/23 20:27 Primary Reason for Your Visit: Chest pain Attending Provider: Darryl Burris Primary Care Provider: Brenden Antony Consulting Providers: Dexter Woodard Instructions Additional Instructions / Restrictions: I suggest you follow-up with your precision agriculture technician within 2 to 3 weeks, you may decide to change cardiologists, I would recommend you make an appointment with Dr. Jalloh if that is the case Discharge Orders/Prescriptions Prescriptions: New aspirin 81 mg Tablet,Delayed Release (Dr/Ec) 81 mg PO BREAKFAST Qty: 0 0RF Continued pantoprazole 40 mg tablet,delayed release (DR/EC) 40 mg PO DAILY evolocumab 140 mg/mL pen injector 140 mg SC Q2W cyclobenzaprine 5 mg tablet 5 mg PO BID PRN (Reason: muscle spasm) atorvastatin 80 mg tablet 80 mg PO QHS Qty: 90 3RF clopidogrel 75 mg tablet 75 mg PO DAILY Qty: 90 3RF Repatha SureClick 140 mg/mL pen injector 140 mg SC Q2W Qty: 1 6RF nitroglycerin 0.4 mg tablet, sublingual 0.4 mg SUBLINGUAL PRN PRN (Reason: Angina) Qty: 25 3RF clonazepam 0.5 MG tablet 0.5 mg PO BID desvenlafaxine succinate 50 mg tablet extended release 24 hr 75 mg PO DAILY oxybutynin chloride 5 mg tablet extended release 24hr 5 mg PO DAILY Patient Comments: TAKE 1 TABLET BY MOUTH EVERY DAY lithium carbonate 300 mg capsule 300 mg PO BID metformin 500 mg tablet extended release 24 hr 1,000 mg PO BID Patient Comments: TAKE 2 TABLETS BY MOUTH TWICE DAILY BEFORE MEALS. ezetimibe [Zetia] 10 mg tablet 10 mg PO QHS Changed metoprolol tartrate 50 mg tablet 25 mg PO BID Qty: 180 3RF ranolazine 500 mg tablet extended release 12 hr 1,000 mg PO BID Qty: 1 0RF Patient Comments: TAKE 1 TABLET BY MOUTH TWICE A DAY Referrals / Follow Up: Brenden Antony MD [Primary Care Provider] - Within 2 Weeks YeimiJuan Antonio gonzalez MD [Med Staff - Active Staff] - See Referral Note (If you want to change cardiology coverage, please call their office to schedule an appointment) Disposition Disposition (needs filled in before D/C Order can be placed): Home, Self Care
--- NOTE | 2023-05-09 14:22 | PCM.DC.SUM ---
Providers Date of Admission: 05/08/23 Date of Discharge: 05/09/23 Primary Care Physician: Dr. Brenden Antony MD Reason For Visit: CHEST PAIN Diagnosis Discharge Diagnosis (1) Angina pectoris: Status: Acute Code(s): I20.9 - Angina pectoris, unspecified (2) Bradycardia: Status: Acute Code(s): R00.1 - Bradycardia, unspecified Plan 1. Chest pain-etiology unknown #2 atherosclerotic heart disease #3 hyperlipidemia #4 chronic depression Medications at Discharge Home Medications clonazepam 0.5 mg tablet 0.5 mg PO BID 09/17/18 cyclobenzaprine 5 mg tablet 5 mg PO BID PRN muscle spasm 09/28/19 evolocumab 140 mg/mL subcutaneous pen injector 140 mg subcut Q2W 09/28/19 pantoprazole 40 mg tablet,delayed release 40 mg PO DAILY 09/28/19 desvenlafaxine succinate 50 mg tablet,extended release 24 hr 75 mg PO DAILY Depression 09/30/19 atorvastatin 80 mg tablet 80 mg PO QHS #90 tabs 04/13/20 clopidogrel 75 mg tablet 75 mg PO DAILY #90 tabs 04/13/20 evolocumab 140 mg/mL subcutaneous pen injector (Repatha SureClick) 140 mg subcut Q2W #1 mL 04/13/20 nitroglycerin 0.4 mg sublingual tablet 0.4 mg sublingual PRN PRN Angina #25 tabs 04/13/20 ezetimibe 10 mg tablet (Zetia) 10 mg PO QHS 05/08/23 lithium carbonate 300 mg capsule 300 mg PO BID 05/08/23 metformin 500 mg tablet,extended release 24 hr 1,000 mg PO BID DIABETES 05/08/23 oxybutynin chloride 5 mg tablet,extended release 24 hr 5 mg PO DAILY 05/08/23 aspirin 81 mg tablet,delayed release 81 mg PO BREAKFAST #0 tabs 05/09/23 metoprolol tartrate 50 mg tablet 25 mg (1/2 x 50 mg) PO BID #180 tabs 05/09/23 ranolazine 500 mg tablet,extended release,12 hr 1,000 mg (2 x 500 mg) PO BID #1 TAB 05/09/23 Hospital Course Operations None Procedures 2-D Echocardiogram and Stress test Summary of Care Provided Minutes Spent on Discharge: 31 Hospital Course: This 42-year-old white male was seen in the emergency room at [facility] with complaints of precordial chest pain which radiates into his neck bilaterally. Patient has a past history of coronary artery disease and is on dual antiplatelet therapy and a statin. Work-up in the emergency room included a troponin which was unremarkable, EKG showed a normal sinus rhythm without evidence of ischemic changes. Patient's chest x-ray was unremarkable. Patient was placed in observation status on PCU, cardiac enzymes were cycled and these remain normal. Patient underwent a nuclear stress test, he went approximately 9 minutes on the treadmill without any chest pain, nuclear images did not show any evidence of reversible ischemia. Patient also underwent a CT of his chest to further elucidate why he had chest pain, the CT was unremarkable. The etiology of the patient's chest pain was unknown. Patient told this examiner that he was told by his online marketing manager that he may have small vessel disease. On 05/09/2023, patient was seen and examined: On examination he appeared in good health and spirits. Vital signs as documented. Skin warm and dry and without overt rashes. Neck without JVD, neck was supple, trachea midline, thyroid was normal. Lungs clear bilaterally, normal air movement was noted. Heart exam notable for regular rhythm, normal sounds and absence of murmurs, rubs or gallops. Abdomen unremarkable and without evidence of organomegaly, masses, or abdominal aortic enlargement. Bowel sounds are present, abdomen is not distended. Extremities nonedematous, no cyanosis was noted, no clubbing was noted. Neuro: Cranial nerves II through XII are grossly intact, no focal motor deficits were noted, sensation to light touch and pinprick intact, motor exam 5/5 throughout. Psych: Patient is alert and oriented x3, he does not appear anxious or depressed, he does not appear agitated. Patient was discharged home in stable condition on 05/09/2023, patient's metoprolol was decreased due to complaints of extreme fatigue by the patient and his Ranexa was increased at the time of discharge. Patient was instructed to follow-up with his present online marketing manager or make an appointment with Dr. Jalloh's group for follow-up. Weight / BMI Weight Weight: 86 kg Body Mass Index (BMI) 28.0 ABG / Lab / Microbiology Data 05/09/23 05:30 05/09/23 05:30 Laboratory: Laboratory Results - last 24 hr 05/08/23 16:40: WBC 11.8 H, RBC 4.47 L, Hgb 13.7, Hct 42.0, MCV 94.0, MCH 30.6, MCHC 32.6, RDW Std Deviation 45.1 H, RDW Coeff of Abhinav 13.1, Plt Count 265, MPV 10.4, Immature Gran % (Auto) 0.400, Neut % (Auto) 53.9, Lymph % (Auto) 31.9, Stearns % (Auto) 10.3 H, Eos % (Auto) 3.0, Baso % (Auto) 0.5, Absolute Neuts (auto) 6.4, Absolute Lymphs (auto) 3.76, Nucleated RBC % 0, Sodium 141, Potassium 4.1, Chloride 113 H, Carbon Dioxide 24.0, Anion Gap 4 L, BUN 12, Creatinine 0.80, Estim Creat Clear Calc 122.74, Est GFR (MDRD) Af Amer 137, Est GFR (MDRD) Non-Af 113, BUN/Creatinine Ratio 14.9, Glucose 75, Calcium 8.6, Magnesium 2.1, Troponin I High Sens 5, TSH 1.80 05/08/23 18:55: Troponin I High Sens 4 05/08/23 21:54: POC Glucose 98 05/08/23 22:30: Troponin I High Sens 5 05/09/23 05:30: WBC 10.8, RBC 4.40 L, Hgb 14.5, Hct 41.2, MCV 93.6, MCH 33.0 H, MCHC 35.2 D, RDW Std Deviation 44.9 H, RDW Coeff of Abhinav 13.1, Plt Count 263, MPV 10.4, Immature Gran % (Auto) 0.600, Neut % (Auto) 51.6, Lymph % (Auto) 35.8, Stearns % (Auto) 8.3, Eos % (Auto) 3.1, Baso % (Auto) 0.6, Absolute Neuts (auto) 5.6, Absolute Lymphs (auto) 3.87, Nucleated RBC % 0, Sodium 142, Potassium 4.1, Chloride 114 H, Carbon Dioxide 24.0, Anion Gap 4 L, BUN 13, Creatinine 0.62 L, Estim Creat Clear Calc 158.38, Est GFR (MDRD) Af Amer 186, Est GFR (MDRD) Non-Af 154, BUN/Creatinine Ratio 21.1 H, Glucose 96, Hemoglobin A1c 5.8 H, Calcium 8.5, Triglycerides 142, Cholesterol 68, LDL Cholesterol 3, VLDL Cholesterol 28, HDL Cholesterol 37 L 05/09/23 06:16: POC Glucose 97 Radiography Diagnostic Testing: Radiology Impression Chest X-Ray 05/08/23 16:40 IMPRESSION: No radiographic evidence of acute cardiopulmonary disease. Electronically Signed: Shauna Isaac MD at 17:51 EDT , Echocardiogram 05/09/23 05:55 Interpretation Summary The estimated ejection fraction is 65 %. Trivial mitral valve insufficiency. Ordering Physician: Dexter Woodard Performed By: Martinez Landry RCS Chest CT 05/09/23 12:59 IMPRESSION: Prior CABG. No acute abnormality is seen. Electronically Signed: Clement Vazquez MD at 13:59 EDT , D/C Instructions Discharge Diet: Renal Diet and - (Resume previous diet) Weight Bearing Status: Full weight bearing Meaningful Use Info Meaningful Use Diagnoses (Choose all that apply): None applicable Discharge Plan Admission Admit Date/Time: 05/08/23 20:27 Primary Reason for Your Visit: Chest pain Attending Provider: Darryl Burris Primary Care Provider: Brenden Antony Consulting Providers: Dexter Woodard Instructions Additional Instructions / Restrictions: I suggest you follow-up with your online marketing manager within 2 to 3 weeks, you may decide to change cardiologists, I would recommend you make an appointment with Dr. Jalloh if that is the case Discharge Orders/Prescriptions Prescriptions: New aspirin 81 mg Tablet,Delayed Release (Dr/Ec) 81 mg PO BREAKFAST Qty: 0 0RF Continued pantoprazole 40 mg tablet,delayed release (DR/EC) 40 mg PO DAILY evolocumab 140 mg/mL pen injector 140 mg SC Q2W cyclobenzaprine 5 mg tablet 5 mg PO BID PRN (Reason: muscle spasm) atorvastatin 80 mg tablet 80 mg PO QHS Qty: 90 3RF clopidogrel 75 mg tablet 75 mg PO DAILY Qty: 90 3RF Repatha SureClick 140 mg/mL pen injector 140 mg SC Q2W Qty: 1 6RF nitroglycerin 0.4 mg tablet, sublingual 0.4 mg SUBLINGUAL PRN PRN (Reason: Angina) Qty: 25 3RF clonazepam 0.5 MG tablet 0.5 mg PO BID desvenlafaxine succinate 50 mg tablet extended release 24 hr 75 mg PO DAILY oxybutynin chloride 5 mg tablet extended release 24hr 5 mg PO DAILY Patient Comments: TAKE 1 TABLET BY MOUTH EVERY DAY lithium carbonate 300 mg capsule 300 mg PO BID metformin 500 mg tablet extended release 24 hr 1,000 mg PO BID Patient Comments: TAKE 2 TABLETS BY MOUTH TWICE DAILY BEFORE MEALS. ezetimibe [Zetia] 10 mg tablet 10 mg PO QHS Changed metoprolol tartrate 50 mg tablet 25 mg PO BID Qty: 180 3RF ranolazine 500 mg tablet extended release 12 hr 1,000 mg PO BID Qty: 1 0RF Patient Comments: TAKE 1 TABLET BY MOUTH TWICE A DAY Referrals / Follow Up: Brenden Antony MD [Primary Care Provider] - Within 2 Weeks Juan Antonio Jalloh MD [Med Staff - Active Staff] - See Referral Note (If you want to change cardiology coverage, please call their office to schedule an appointment) Disposition Disposition (needs filled in before D/C Order can be placed): Home, Self Care Charges/Coding Visit Charges Inpatient E&M: 61968 Disch Hosp >30min
== END 2023-05-09 15:00 | disposition home or self-care (01) ==
LOC: ED 17:03 → PCU 21:09
PROVIDERS: Admitting Provider Hospitalist; Emergency Provider Emergency Medicine; PCP Family Medicine; Visit Provider Internal Medicine
DX: R07.89 Other chest pain (principal); E11.9 Type 2 diabetes mellitus without complications; R00.1 Bradycardia, unspecified; I25.10 Atherosclerotic heart disease of native coronary artery without angina pectoris; M54.9 Dorsalgia, unspecified; E78.5 Hyperlipidemia, unspecified; F17.210 Nicotine dependence, cigarettes, uncomplicated; R07.0 Pain in throat; E78.01 Familial hypercholesterolemia; M25.512 Pain in left shoulder; I10 Essential (primary) hypertension; M25.511 Pain in right shoulder; Z79.899 Other long term (current) drug therapy; Z79.02 Long term (current) use of antithrombotics/antiplatelets; Z79.84 Long term (current) use of oral hypoglycemic drugs; K21.9 Gastro-esophageal reflux disease without esophagitis; F32.A Depression, unspecified; F41.9 Anxiety disorder, unspecified; Z95.1 Presence of aortocoronary bypass graft
CPT/HCPCS: 36415; 71046; 71250; 78452; 80048; 80061; 82962; 83036; 83735; 84443; 84484; 85025; 93005; 93017; 93306; 99285; 99406; A9500; Q9957; A4216; C8929